=== PATIENT | female | born 1965 | race Hispanic/Latino ===

== ENCOUNTER 2018-02-20 23:46 | Emergency (ER) | payer SELFPAY ==
[~2018-02-20] VITALS: Ht 170.2 cm; Wt 81.6 kg
[2018-02-21] MEDS ORDERED: METHYLPREDNISOLONE SOD SUCC 125 MG/2ML VIAL IM ONE
[2018-02-21] MEDS ORDERED: FAMOTIDINE 20 MG TAB PO ONE
== END 2018-02-21 01:23 | disposition home or self-care (01) ==
LOC: ER 23:46
DX: L50.0 Allergic urticaria (principal); T61.784A Other shellfish poisoning, undetermined, initial encounter
CPT/HCPCS: 99282; J2930